=== PATIENT | female | born 1955 | race Caucasian/White ===

== ENCOUNTER 2024-09-01 10:55 | Outpatient (RCR) | payer MEDICARE, SELFPAY | END 2024-12-18 06:52 | disposition home or self-care (01) | LOC: PT 10:55 | PROVIDERS: Visit Provider Orthopaedic Surgery Orthopaedic Trauma | DX: S42.202D Unspecified fracture of upper end of left humerus, subsequent encounter for fracture with routine healing (principal) | CPT/HCPCS: 97110; 97140; 97162 ==